=== PATIENT | male | born 1960 | race Caucasian/White ===

== ENCOUNTER 2021-04-04 13:01 | Outpatient (CLI) | payer OTHER, SELFPAY ==
--- NOTE | ~2021-04-04 | US_ITS ---
EXAMINATION: US venous doppler [facility] DATE: 04/04/2021 14:25 INDICATION: Lower limb swelling TECHNIQUE: Martinez scale images without and with compression and Doppler images of the bilateral lower e xtremity veins were obtained. COMPARISON: 06/15/2019 FINDINGS: The right common femoral vein, profunda femoral vein, femoral vein, popliteal vein, peroneal trunk, p osterior tibial veins, and greater saphenous vein are patent. The left common femoral vein, profunda femoral vein, femoral vein, popliteal vein, peroneal trunk, po sterior tibial veins, and greater saphenous vein are patent. IMPRESSION: 1. Patent bilateral lower extremity veins. No evidence of deep venous thrombosis. Reviewed, dictated and finalized at location A. IMPRESSION: 1. Patent bilateral lower extremity veins. No evidence of deep venous thrombosi s.
== END 2021-04-04 13:02 | disposition home or self-care (01) ==
PROVIDERS: PCP Family Medicine; Visit Provider Physician Assistant
DX: M79.89 Other specified soft tissue disorders (principal)
CPT/HCPCS: 93970

== ENCOUNTER 2022-12-10 14:37 | Outpatient (CLI) | payer OTHER, SELFPAY ==
[2022-12-10 19:48] LABS: Alanine Aminotransferase 31 U/L (6-50); Albumin Level 4.1 g/dL (3.5-5.1); Alkaline Phosphatase 55 U/L (38-126); Anion Gap 6 mmol/L (8-16); Aspartate Amino Transferase 38 U/L (17-59); Blood Urea Nitrogen 12 mg/dL (9-20); Calcium 8.9 mg/dL (8.4-10.2); Carbon Dioxide 29 mmol/L (22-30); Chloride 102 mmol/L (98-107); Cholesterol 249 mg/dL (0-200); Estimated Glomerular Filt Rate > 60; Glucose 102 mg/dL (65-110); HDL Direct 90 mg/dL; Potassium 4.1 mmol/L (3.4-5.0); Sodium 137 mmol/L (137-145); Triglycerides 180 mg/dL (<150)
[2022-12-10 20:00] LABS: LDL Cholesterol Direct 104 mg/dL
[2022-12-10 20:19] LABS: Prostate Specific Antigen 0.8 ng/mL (< OR = 4.0)
[2022-12-10 20:24] LABS: Basophils Absolute Auto 0.1 K/mm3 (0.0-0.1); Basophils Percent Auto 1.1 % (0.2-1.2); Eosinophils Absolute Auto 0.2 K/mm3 (0-0.3); Eosinophils Percent Auto 2.6 % (0-4.4); Hematocrit 46.3 % (42.0-52.0); Hemoglobin 15.7 g/dL (14.0-18.0); Lymphocytes Absolute Auto 1.89 K/mm3 (0.9-3.2); Lymphocytes Percent Auto 27.2 % (18.3-44.2); Mean Corpuscular HGB Conc 33.9 g/dl (32-36); Mean Corpuscular Hemoglobin 33.1 pg (26-34); Mean Corpuscular Volume 97.7 fl (80-100); Mean Platelet Volume 10.6 fl (7.4-10.4); Monocytes Absolute Auto 0.8 K/mm3 (0.1-0.6); Monocytes Percent Auto 11.8 % (2.6-8.5); Neutrophils Percent Auto 57.3 % (45.5-73.1); Platelet Count Result 233 k/mm3 (150-375); Red Blood Count 4.74 M/mm3 (4.6-6.20); Red Cell Distribution Width 12.4 % (11.5-14.5)
== END 2022-12-10 14:38 | disposition home or self-care (01) ==
LOC: ANHGOSHLAB 14:38
PROVIDERS: PCP Family Medicine; Visit Provider Family Medicine
DX: R03.0 Elevated blood-pressure reading, without diagnosis of hypertension (principal)
CPT/HCPCS: 36415; 80053; 80061; 84153; 85025; G0103

== ENCOUNTER 2023-01-27 00:05 | Day surgery (SDC) | payer OTHER, SELFPAY ==
[2023-01-14 13:21] VITALS: BMI 31.1
[2023-01-27 06:24] VITALS: BP 136/92; PULSE 101; RESP 18; TEMP 36.4; O2SAT 96
[2023-01-27] MEDS: LACTATED RINGERS 1,000 ML 150 ML IV CONT (06:32)
--- NOTE | 2023-01-27 07:19 | WPDANESEPPF ---
Anes - Initial Pre Proc Eval Procedure: Operation Date: 01/27/23 07:30 Proposed Procedures p Screening Colonoscopy - Eddie Morgan MD Date/Time: 01/27/23 07:19 Surgeon: Eddie Morgan MD Pre Op Diagnosis: neoplasm screening Patient Data Age: 62 Gender: M Height: 1.88 m Weight: 106.2 kg Last Vital Signs Temp 97.6 F 01/27/23 06:24 Pulse 101 H 01/27/23 06:24 Resp 18 01/27/23 06:24 BP 136/92 H 01/27/23 06:24 Pulse Ox 96 01/27/23 06:24 O2 Del Method Room Air 01/27/23 06:24 Allergies Allergy/AdvReac Type Severity Reaction Status Date / Time No Known Allergies Allergy Verified 01/27/23 06:23 Home Medications Medication Instructions Recorded Confirmed Type nitroglycerin 0.4 % (w/w) rectal 0.25 inch RECTAL BID #30 grams 12/10/22 01/14/23 Rx ointment calcium carb-vitamin D3 ER 600 mg 1 tablet PO DAILY 01/14/23 01/14/23 History (1,500 mg)-500 unit tablet,ER 24 hr ginkgo biloba 40 mg tablet 40 mg PO DAILY 01/14/23 01/14/23 History glucosamine sulfate 500 mg tablet 500 mg PO DAILY 01/14/23 01/14/23 History (Glucosamine) multivit with minerals-iron 18 1 tablet PO DAILY 01/14/23 01/14/23 History mg-folic ac 400 mcg-vit K 25 mcg tablet (Adults Multivitamin) Patient hx anesthesia problems: none Family hx anesthesia problems: none Results Review: All pre-operative results and documents have been reviewed as part of the pre-operative evaluation. [facility] Past Medical History Medical History (Updated 12/10/22 @ 14:30 by Eric Melo MD) Anal fissure Body mass index [BMI] 30.0-30.9, adult (05/17/19) Failed total knee replacement Primary osteoarthritis of left knee Sciatic leg pain Seborrheic keratoses Varicose veins of both lower extremities Family History Family History Sibling Family history of blood dyscrasia Father Acute myocardial infarction Mother Family history of primary malignant neoplasm of liver Family history of lymphoma Family history of malignant neoplasm of kidney Social History Social History (Updated 12/10/22 @ 13:58 by Jennifer Booker MA) Years smoked: 3 Smoking status: Former smoker Tobacco type: cigarettes Alcohol intake: current Drinks per week: 7 Substance use: never Substance use type: does not use Lack of Transportation: No Lack of Food: Never True Current Housing: I Have Housing Concerned About Future Housing: No Difficulty Paying for Meds: No Currently Unemployed: No Education: Bachelor's Degree Difficulty w/ Childcare or Family Care: No Living arrangements: with family Spiritual care concerns: No Anes - Eval Final PreProcedure Day of Procedure 01/27/23 07:19 Patient weight: normal Heart: regular rate and rhythm Lungs: clear to auscultation Airway: Mallampati scale class II Neurological: alert and oriented Last oral intake: >/= 8 hours ASA classification: II Emergent: no Anesthetic plan: proceed Anesthesia type and monitoring: general GIVS and standard monitoring Results Review: All pre-operative results and documents have been reviewed as part of the pre-operative evaluation. Informed Consent: The patient's anesthetic plan and its attendant risks and benefits were discussed with the patient/family/POA. Questions were solicited and answers provided to the satisfaction of the patient/family/POA.
--- NOTE | 2023-01-27 07:33 | PM.HPGS ---
History of Present Illness History of Present Illness Consent: Risks, benefits, and alternatives have been discussed and questions answered. Patient agrees to proceed with procedure. Chief complaint: neoplasm screening Narrative: Franc Aldridge is a 62 year old male here for screening colonoscopy, last one about 7 years ago Review of Systems Constitutional: Constitutional: Denies headache(s) and Denies weakness Eyes: Eyes: Denies blurry vision ENT: Reports Normal hearing present, Denies headache(s) and Denies neck pain Cardiovascular: Cardiovascular: Denies chest pain and Denies dyspnea Respiratory: Respiratory: Denies dyspnea Gastrointestinal: Gastrointestinal: Reports no additional gastrointestinal complaints Genitourinary: Genitourinary: Denies dysuria Musculoskeletal: Musculoskeletal: Denies neck pain Integumentary/Breasts: Skin/Breast: Denies dry skin Neurologic: Reports Normal hearing present, Denies headache(s) and Denies weakness Psychiatric: Psychiatric: Denies anxiety Endocrine: Endocrine: Denies change in body appearance Hematologic/Lymphatic: Hematologic/Lymphatic: Denies easy bleeding Allergic/Immunologic: Allergic/Immunologic: Denies urticaria PMFSH Past Medical History Medical History (Updated 12/10/22 @ 14:30 by Eric Melo MD) Anal fissure Body mass index [BMI] 30.0-30.9, adult (05/17/19) Failed total knee replacement Primary osteoarthritis of left knee Sciatic leg pain Seborrheic keratoses Varicose veins of both lower extremities Family History Family History Sibling Family history of blood dyscrasia Father Acute myocardial infarction Mother Family history of primary malignant neoplasm of liver Family history of lymphoma Family history of malignant neoplasm of kidney Social History Social History (Updated 12/10/22 @ 13:58 by Jennifer Booker MA) Years smoked: 3 Smoking status: Former smoker Tobacco type: cigarettes Alcohol intake: current Drinks per week: 7 Substance use: never Substance use type: does not use Lack of Transportation: No Lack of Food: Never True Current Housing: I Have Housing Concerned About Future Housing: No Difficulty Paying for Meds: No Currently Unemployed: No Education: Bachelor's Degree Difficulty w/ Childcare or Family Care: No Living arrangements: with family Spiritual care concerns: No Meds Home Medications and Allergies Home Medications Medication Instructions Recorded Confirmed Type nitroglycerin 0.4 % (w/w) rectal 0.25 inch RECTAL BID #30 grams 12/10/22 01/14/23 Rx ointment calcium carb-vitamin D3 ER 600 mg 1 tablet PO DAILY 01/14/23 01/14/23 History (1,500 mg)-500 unit tablet,ER 24 hr ginkgo biloba 40 mg tablet 40 mg PO DAILY 01/14/23 01/14/23 History glucosamine sulfate 500 mg tablet 500 mg PO DAILY 01/14/23 01/14/23 History (Glucosamine) multivit with minerals-iron 18 1 tablet PO DAILY 01/14/23 01/14/23 History mg-folic ac 400 mcg-vit K 25 mcg tablet (Adults Multivitamin) Allergies Allergy/AdvReac Type Severity Reaction Status Date / Time No Known Allergies Allergy Verified 01/27/23 06:23 Vital Signs Vital Signs - 24 hr 01/27/23 06:24 Temperature 97.6 F Pulse Rate 101 H Respiratory Rate 18 Blood Pressure 136/92 H Pulse Oximetry 96 Oxygen Delivery Room Air Exam Const: General: comfortable and no acute distress HENMT: Face/Nose/Sinus: Normal nares present Eyes: General: appearance normal, both eyes and all related structures Neck: Neck: no JVD Resp: Auscultation: clear to auscultation bilaterally Cardio: Rate: regular rate Rhythm: regular rhythm GI: Inspection: non-distended GI Palp: Yes Soft to palpation Skin: General skin exam: normal color Neuro: General: gait normal Speech: normal speech Extrem: General: normal to inspection Psych: Mental Stat
[2023-01-27 07:50] VITALS: BP 109/72; PULSE 87; RESP 24; O2SAT 92
[2023-01-27 08:00] VITALS: BP 120/102; PULSE 82; RESP 20; O2SAT 96
[2023-01-27 08:10] VITALS: BP 125/75; PULSE 75; RESP 19; O2SAT 93
== END 2023-01-27 08:19 | disposition home or self-care (01) ==
PROVIDERS: PCP Family Medicine; Visit Provider Internal Medicine Gastroenterology
PROC: 0DJD8ZZ Inspection of Lower Intestinal Tract, Via Natural or Artificial Opening Endoscopic (ICD-10-PCS; CPT 45378; principal; 2023-01-27 07:30)
DX: Z12.11 Encounter for screening for malignant neoplasm of colon (principal); D12.2 Benign neoplasm of ascending colon; K57.30 Diverticulosis of large intestine without perforation or abscess without bleeding; K64.8 Other hemorrhoids; Z87.891 Personal history of nicotine dependence
CPT/HCPCS: 45380; 88305; J2704; J7120

== ENCOUNTER 2023-04-22 08:40 | Emergency (ER) | payer OTHER, SELFPAY | END 2023-04-22 10:15 | disposition home or self-care (01) | PROVIDERS: Emergency Provider Nurse Practitioner Family; PCP Family Medicine | DX: J06.9 Acute upper respiratory infection, unspecified (principal); Z20.822 Contact with and (suspected) exposure to COVID-19 | CPT/HCPCS: 87081; 87880; 99213; C9803; G0463 ==

== ENCOUNTER 2024-01-12 13:22 | Outpatient (CLI) | payer OTHER, SELFPAY | END 2024-01-12 13:23 | disposition home or self-care (01) | LOC: ANHAUDIO 13:22 | PROVIDERS: PCP Family Medicine; Visit Provider Nurse Practitioner Family | DX: H90.3 Sensorineural hearing loss, bilateral (principal); H93.13 Tinnitus, bilateral | CPT/HCPCS: 92557; 92567 ==

== ENCOUNTER 2024-08-29 13:02 | Outpatient (CLI) | payer OTHER, SELFPAY ==
[2024-08-31 12:58] LABS: H pylori Ag Stool RESULT: Not Detected
== END 2024-08-29 13:03 | disposition home or self-care (01) ==
LOC: ANHLAB 13:04
PROVIDERS: PCP Family Medicine; Visit Provider Nurse Practitioner Family
DX: R10.10 Upper abdominal pain, unspecified (principal)
CPT/HCPCS: 87338

== ENCOUNTER 2025-01-13 09:45 | Outpatient (CLI) | payer SELFPAY ==
--- OUTSIDE RECORDS SUMMARY | 2025-01-13 10:23 | XMS_ITS | Clinical Summary ---
Author Organization [facility] Address [address] [place] [phone] Care Team Providers Care Hatch Boss Name Role Phone Eric Melo MD Primary Care Provider [phone]- [phone] Allergies No known active allergies Medications gabapentin (NEURONTIN) 100 mg capsule Take 1 Capsule (100 mg) by mouth see administration instructions. One capsule QHS for 3 days, then BID for 3 days, then TID 72 Capsule Active Hospital, Clinic, or Other Facility Administered Medication Ordered Dose Route Frequency Start Date End Date Status bupivacaine PF (SENSORCAINE MPF) 5 mg/mL (0.5%) injection 10-25 mgIndications:Sacr oiliac joint dysfunction of right side 10 - 25 mg See Instruct INTRA-PROCEDURE ONCE 12/16/2022 Active Active Problems Problem Noted Date Diagnosed Date Sacroiliac joint dysfunction of right side 01/26 Intervertebral disc disorder with radiculopathy of lumbosacral region 11/13/2022 Piriformis syndrome of left side 08/20/2022 Encounters Date Type Department Care Team Description 12/08/2024 10:20 AM EXHIBITIONS CURATOR Office Visit [facility] [address] [phone] Sydney Ramirez PA Lumbar radiculopathy (Primary Dx) 11/10/2024 11:09 AM EXHIBITIONS CURATOR - 11/10/2024 11:59 PM EXHIBITIONS CURATOR Hospital Encounter [facility] [address] [phone] Beto Parish MD Discharge Disposition: Home or Self Care 11/10/2024 10:47 AM EXHIBITIONS CURATOR - 11/10/2024 11:59 PM EXHIBITIONS CURATOR Hospital Encounter [facility] [address] [phone] Beto Parish MD Discharge Disposition: Home or Self Care 10/19/2024 Prep for Surgery [facility] [address] [place] [address] Flaco Snoido Lumbar radiculopathy (Primary Dx) from Last 3 Months Social History Tobacco Use Types Packs/Day Years Used Date Smoking Tobacco: Unknown Tobacco Cessation:Counseling Given: Not Answered Comments:Occasional cigar Sex and Gender Information Value Date Recorded Sex Assigned at Male 10/13/2024 8:59 AM EXHIBITIONS CURATOR Legal Sex Male 12:18 PM CDT Gender Identity Male 10/13/2024 8:59 AM EXHIBITIONS CURATOR Sexual Orientation Straight 10/13/2024 8: 59 AM EXHIBITIONS CURATOR Last Filed Vital Signs Vital Sign Reading Time Taken Comments Blood Pressure 135/91 11/10/2024 11:31 AM EXHIBITIONS CURATOR Pulse 67 11/10/2024 11:31 AM EXHIBITIONS CURATOR Temperature - - Respiratory Rate 18 02/16/2024 11:04 AM CDT Oxygen Saturation 98% 11/10/2024 11:31 AM EXHIBITIONS CURATOR Inhaled Oxygen Concentration - - Weight 108 kg (238 lb) 12/08/2024 10:21 AM EXHIBITIONS CURATOR Height 188 cm (6' 2 ) 12/08/2024 10:21 AM EXHIBITIONS CURATOR Body Mass Index 30.56 12/08/2024 10:21 AM EXHIBITIONS CURATOR Plan of Treatment Health Maintenance Due Date Last Done Comments Pre-Diabetes and Diabetes Screening 1962 DTAP/TDAP/TD VACCINES (1 - Tdap) 1981 COLORECTAL SCREENING 2007 Colorectal Cancer Screening 2007 FIT-DNA Q 3 years 2007 FIT/FOBT Q 1 year 2007 Flex Sig/CT Colonography Q 5 years 2007 ZOSTER VACCINE (1 of 2) 2012 INFLUENZA VACCINE (#1) 2024 10/01/2022 RSV VACCINE (60+ or ) (1 - 1-dose 75+ series) 2037 Procedures Procedure Name Priority Date/Time Associated Diagnosis Comments XR FLUORO NEEDLE GUIDANCE SPINE Routine 11/10/2024 11:24 AM EXHIBITIONS CURATOR from Last 3 Months Results * XR FLUORO NEEDLE GUIDANCE SPINE (11/10/2024 11:24 AM EXHIBITIONS CURATOR) Narrative TEE MUÑIZ - 11/10/2024 11:24 AM EXHIBITIONS CURATOR Order information only. Exam was auto-finalized. us Beto Parish MD DIAGNOSTIC IMAGING ORDERABLES F inal Result [facility] CLIA# [id number] [facility] [address] [place] [address] from Last 3 Months Insurance [facility] [id number] PPO COVENTRY Care Teams Hatch Boss Relationship Specialty Start Date End Date Eric Melo MD [address] [place] [address] [address] [place] [phone] PCP - General Family Practice 10/22/23
--- OUTSIDE RECORDS SUMMARY | 2025-01-13 10:23 | XMS_ITS | Encounter Summary ---
Author Organization [facility] Address [address] [place] [address] Care Team Providers Care Service Support Representative Name Role Phone Eric Melo MD Primary Care Provider [phone]- [phone] Reason for Visit * Reason Onset Date Comments Appointment Question 10/23/2023 Encounter Details Date Type Department Care Team (Late st Contact Info) Description 10/23/2023 Telephone [facility] [id number] [facility] [address] Anjali eNff GN Appointment Question Social History Tobacco Use Types Packs/Day Years Used Date Smoking Tobacco: Unknown Comments:Occasional cigar Sex and Gender Information Value Date Recorded Sex Assigned at Male 10/13/2024 8:59 AM CHEMICAL TEST ENGINEER Legal Sex Male 12:18 PM CDT Gender Identity Male 10/13/2024 8:59 AM CHEMICAL TEST ENGINEER Sexual Orientation Straight 10/13/2024 8: 59 AM CHEMICAL TEST ENGINEER documented as of this encounter Miscellaneous Notes * Telephone Encounter - Anjali Neff GN - 10/23/2023 2:32 PM CST Called Franc to confirm that he wanted to keep 11/05 appt (TF LESI). He will let us know if he would like to cancel. He wants to see if this recent injection helps or not. ICAL TEST ENGINEER documented in this encounter Plan of Treatment Not on file documented as of this encounter Visit Diagnoses Not on filedocumented in this encounter Care Teams Service Support Representative Relationship Specialty Start Date End Date Eric Melo MD [address] [place] [phone] PCP - General Family Practice 10/22/23 documented as of this encounter
== END 2025-01-13 09:46 | disposition home or self-care (01) ==
PROVIDERS: PCP Family Medicine; Visit Provider Family Medicine
DX: H90.3 Sensorineural hearing loss, bilateral (principal); H93.8X1 Other specified disorders of right ear
CPT/HCPCS: 92557; 92567

== ENCOUNTER 2025-09-26 12:30 | Outpatient (RCR) | payer SELFPAY | END 2025-09-26 23:59 | disposition home or self-care (01) | LOC: ANHAUDIO 12:30 | PROVIDERS: PCP Family Medicine; Visit Provider Family Medicine | DX: Z46.1 Encounter for fitting and adjustment of hearing aid (principal) | CPT/HCPCS: 99199; V5261 ==